=== PATIENT | female | born 2005 | race Caucasian/White ===

== ENCOUNTER 2024-07-20 15:58 | Emergency (ER) | payer OTHER ==
[~2024-07-20] VITALS: Ht 172.7 cm; Wt 63.6 kg
[2024-07-20] MEDS ORDERED: birth control (16:11)
[2024-07-20 18:39] VITALS: BP 123/58; TEMP 98.6; O2SAT 97
[2024-07-20] MEDS: ONDANSETRON 4MG ORAL DISINTEGRATING TAB PO ONE (18:39)
== END 2024-07-20 18:49 | disposition home or self-care (01) ==
LOC: M ED 15:58
DX: S06.0X0A Concussion without loss of consciousness, initial encounter (principal); V00.311A Fall from snowboard, initial encounter; Y92.39 Other specified sports and athletic area as the place of occurrence of the external cause; Y93.23 Activity, snow (alpine) (downhill) skiing, snowboarding, sledding, tobogganing and snow tubing; Y99.9 Unspecified external cause status